=== PATIENT | male | born 1995 | race Caucasian/White ===

== ENCOUNTER 2022-02-18 16:02 | Emergency (ER) | payer SELFPAY ==
--- NOTE | ~2022-02-18 | XR_ITS ---
EXAMINATION: XR ankle LT min 3V DATE: 02/18/2022 16:55 INDICATION: 3 weeks of left ankle pain and swelling TECHNIQUE: Anteroposterior, oblique, mortise, and lateral views of the left ankle were obtained. COMPARISON: None. FINDINGS: Prominent soft tissue swelling overlying the lateral malleolus. Bone alignment is normal with congrue nt ankle mortise. No fracture. Joint spaces are normal. No erosions or periosteal reaction. Increased density anterior to the tibiotalar joint line and could not exclude an ankle joint effusion. IMPRESSION: 1. Soft tissue swelling about the lateral malleolus and possible ankle joint effusion. No osseous abn ormality. Reviewed, dictated and finalized at location B. IMPRESSION: 1. Soft tissue swelling about the lateral malleolus and possible ankle joint ef fusion. No osseous abnormality.
[2022-02-18 16:04] VITALS: BP 156/87; PULSE 106; RESP 16; TEMP 36.1; O2SAT 100
--- NOTE | 2022-02-18 16:55 | ED.EXTPRO ---
HPI - Extremity Problem General Chief complaint: Extremity Problem,Nontraumatic Stated complaint: Left Ankle Pain x3 weeks Time Seen by Provider: 02/18/22 16:51 Source: patient Mode of arrival: ambulatory Limitations: no limitations History of Present Illness HPI Narrative: Patient is 26 years old white male presents with pain at the left ankle laterally started 3 weeks ago. Patient denies any trauma or any twist. Also denies any fever, chills, nausea, vomiting. Related Data Allergies Allergy/AdvReac Type Severity Reaction Status Date / Time No Known Allergies Allergy Unknown Verified 02/18/22 16:10 Review of Systems Review of Systems: All systems reviewed & are unremarkable except as noted in HPI and below PMFSH Family History Family History Grandparent Hypertension Family history of seizure disorder Family history of heart disease in male family member before age 55 Mother Hypertension Social History Social History Smoking status: Never smoker Alcohol intake: never Exam Narrative: General appearance: Well-developed, well-nourished Skin: Normal color Neck: Supple, nontender Chest and respiratory: Airway patent, no respiratory distress, no accessory muscle use Heart: Regular rate/rhythm Vascular: Normal peripheral pulses, normal capillary refill. Musculoskeletal: Left ankle examination showed slightly swollen laterally, warm to touch, slightly red at the lateral malleolus. Tender to touch. 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 Patient's father had history of gouty arthritis. Vital Signs Vital signs: Vital Signs Temperature 36.1 C L 02/18/22 16:04 Pulse Rate 106 H 02/18/22 16:04 Respiratory Rate 16 02/18/22 16:04 Blood Pressure 156/87 H 02/18/22 16:04 Pulse Oximetry 100 02/18/22 16:04 Oxygen Delivery Room Air 02/18/22 16:04 Temperature 36.1 C L 02/18/22 16:04 Pulse Rate 106 H 02/18/22 16:04 Respiratory Rate 16 02/18/22 16:04 Blood Pressure 156/87 H 02/18/22 16:04 Pulse Oximetry 100 02/18/22 16:04 Oxygen Delivery Room Air 02/18/22 16:04 MDM - Extremity (Nontraumatic) Imaging Data Radiologist's impression: Impressions Ankle X-Ray 02/18/22 16:58 IMPRESSION: 1. Soft tissue swelling about the lateral malleolus and possible ankle joint effusion. No osseous abnormality. Critical Care Time Critical Care Time Critical Care Time: No Discharge Plan Discharge Clinical Impression: Gout Patient Disposition: Home, Self-Care Condition: Stable Instructions: Antibiotic Form, Gout (ED) Additional Instructions: Return if symptoms are worsening , call your family physician for appointment, take Tylenol as as needed for aches and pain, continue home medications., Keep left foot elevated, no weightbearing until pain is gone., Crutches Prescriptions: New indomethacin 50 mg capsule 50 mg PO TID Qty: 14 0RF Rx Instructions: administer with food or milk colchicine 0.6 mg capsule 0.6 mg PO BID Qty: 6 0RF Follow-up/Referrals: PHYSICIAN,MACHINE OPERATOR FARMWORKER [Primary Care Provider] - Donato Moyer MD [Physician] - 02/21/22
[2022-02-18] MEDS: INDOMETHACIN 25 MG CAPSULE 50 MG PO (17:27)
[2022-02-18] MEDS: COLCHICINE 0.6 MG TABLET 1.2 MG PO (17:27)
== END 2022-02-18 17:52 | disposition home or self-care (01) ==
PROVIDERS: Emergency Provider Emergency Medicine
DX: M10.9 Gout, unspecified (principal)
CPT/HCPCS: 73610; 99283; A9270

== ENCOUNTER 2022-11-06 17:56 | Emergency (ER) | payer OTHER, BC, SELFPAY ==
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
[2022-11-06 17:56] VITALS: BP 153/85; PULSE 97; RESP 16; TEMP 36.3; O2SAT 98
[2022-11-06] MEDS: HYDROcodone/acetaminophen (*CRX) 5-325 MG TABLET 1 TAB PO (18:22)
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
--- NOTE | 2022-11-06 19:06 | PC.NURSE ---
Report received from GORDO Wilder. Assumed care of patient at this time.
== END 2022-11-06 19:55 | disposition home or self-care (01) ==
PROVIDERS: Emergency Provider Emergency Medicine
DX: S86.011A Strain of right Achilles tendon, initial encounter (principal); V40.9XXA Unspecified car occupant injured in collision with pedestrian or animal in traffic accident, initial encounter
CPT/HCPCS: 73650; 99283; A9270

== ENCOUNTER 2022-12-21 08:27 | Emergency (ER) | payer BC, SELFPAY ==
[2022-12-21 08:37] VITALS: BP 136/82; PULSE 99; RESP 16; TEMP 37.6; O2SAT 99
--- NOTE | 2022-12-21 08:56 | ED.GENADULT ---
HPI - General Adult General Chief complaint: Extremity Problem,Nontraumatic Stated complaint: Left Hand Pain Time Seen by Provider: 12/21/22 08:56 Source: patient Mode of arrival: ambulatory Limitations: no limitations History of Present Illness HPI narrative: 27 yo M presents with c/o paint o R hand, worse to R thumb for several weeks. Getting progressively worse. Reprots pain worse with movement. Today hand feels tight and painful when gripping game controller. 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 No numbness/tingling. All systems reviewed and negative except as noted above. Related Data Home Medications Medication Instructions Recorded Confirmed escitalopram oxalate 10 mg tablet 10 mg PO DAILY 12/21/22 12/21/22 nicotine 21 mg/24 hr daily 1 patch transdermal DAILY 12/21/22 12/21/22 transdermal patch quetiapine 50 mg tablet 50 mg PO DAILY 12/21/22 12/21/22 Allergies Allergy/AdvReac Type Severity Reaction Status Date / Time No Known Allergies Allergy Unknown Verified 12/21/22 08:47 Review of Systems Review of Systems: CONSTITUTIONAL: Denies fever, chills, or sweats. EYES: Denies visual changes, redness, or discharge. ENT: Denies rhinorrhea, congestion, sore throat, or otalgia. CARDIOVASCULAR: Denies chest pain, palpitations, or edema. RESPIRATORY: Denies cough or dyspnea. GASTROINTESTINAL: Denies abdominal pain, nausea, vomiting, or diarrhea. GENITOURINARY: Denies dysuria or hematuria. SKIN: Denies rash or itching. MUSCULOSKELETAL: reports pain to R hand and R thumb NEUROLOGIC: Denies headache, numbness, or weakness. PSYCHIATRIC: Denies anxiety or depression. All other systems reviewed are negative, except as documented in HPI. [facility] Family History Family History Grandparent Hypertension Family history of seizure disorder Family history of heart disease in male family member before age 55 Mother Hypertension Social History Social History Smoking status: Never smoker Alcohol intake: never Comments At time of signature, agree with nursing past medical, surgical, social and family history. There is no relevant family history pertinent to the presenting complaint. Exam Narrative: GENERAL: This is a well-nourished, well-developed patient, in no apparent distress. HEAD: normocephalic, atraumatic. EYES: PERRL. Sclera clear/white. Vision is grossly intact. EARS: External ears normal NOSE: External nose normal NECK: Neck supple, non-tender without lymphadenopathy, masses or thyromegaly. CARDIOVASCULAR: Regular rate and rhythm without murmurs, gallops, or rubs. RESPIRATORY: Clear to auscultation. Breath sounds equal bilaterally. No wheezes, rales, or rhonchi. SKIN: warm, Dry, intact with no suspicious lesions or rash, good texture and turgor. NEURO: awake, alert, and oriented to person, place and time. There were no obvious focal neurologic abnormalities. EXTREMITIES: tenderness to R thumb and thenar eminence. mild swelling. ROM intact to R hand and R wrist. Course Course Level of Care: Express Care Visit Vital Signs Vital signs: Vital Signs Temperature 37.6 C 12/21/22 08:37 Pulse Rate 99 12/21/22 08:37 Respiratory Rate 16 12/21/22 08:37 Blood Pressure 136/82 12/21/22 08:37 Pulse Oximetry 99 12/21/22 08:37 Oxygen Delivery Room Air 12/21/22 08:37 Temperature 37.6 C 12/21/22 08:37 Pulse Rate 99 12/21/22 08:37 Respiratory Rate 16 12/21/22 08:37 Blood Pressure 136/82 12/21/22 08:37 Pulse Oximetry 99 12/21/22 08:37 Oxygen Delivery Room Air 12/21/22 08:37 Reviewed Medical Decision Making MDM Narrative Medical decision making narrative: Patient is aware of diagnosis, understands and agrees to treatment plan. Anticipatory guidance given. Patient agrees to follow-up as directed and is aware of reasons to seek care at the
== END 2022-12-21 09:09 | disposition home or self-care (01) ==
PROVIDERS: Emergency Provider Nurse Practitioner Family
DX: M77.8 Other enthesopathies, not elsewhere classified (principal); F41.9 Anxiety disorder, unspecified; F32.A Depression, unspecified
CPT/HCPCS: 99213; G0463

== ENCOUNTER 2023-05-22 13:19 | Emergency (ER) | payer BC, SELFPAY ==
[2023-05-22 13:28] VITALS: BP 144/80; PULSE 114; RESP 16; TEMP 35.9; O2SAT 99
--- NOTE | 2023-05-22 13:32 | ED.EXTPRO ---
HPI - Extremity Problem General Chief complaint: Extremity Injury, Upper Stated complaint: Left Foot Pain Time Seen by Provider: 05/22/23 13:30 Source: patient Mode of arrival: ambulatory Limitations: no limitations History of Present Illness HPI Narrative: Mikel is a 27-year-old male patient presenting to the clinic today with complaints of left ankle pain times 2-3 days. He reports no known injury. Does have a history of gout. Has pain to the lateral ankle. Has been wearing a compression bandage Related Data Allergies Allergy/AdvReac Type Severity Reaction Status Date / Time No Known Allergies Allergy Unknown Verified 05/22/23 13:30 Review of Systems Review of Systems: Pertinent positives per HPI. Patient denies any fever, chills, rash, headache, visual changes, dizziness, cough, runny nose, sore throat, shortness of breath, chest pain, palpitations, nausea, vomiting, diarrhea, constipation, abdominal pain, or any urinary issues. PMFSH Family History Family History Grandparent Hypertension Family history of seizure disorder Family history of heart disease in male family member before age 55 Mother Hypertension Social History Social History Smoking status: Never smoker Alcohol intake: never Comments At the time of my signature, I reviewed and agree with the nursing past medical, surgical, social, and family history. There is no relevant family history pertinent to the patient complaint. Exam Narrative: General: Well-developed, well nourished, in no apparent distress Head: Normocephalic, atraumatic. Cardio: Regular rate and rhythm, s1 and s2 normal, no murmur appreciated. Resp: Clear to auscultation bilaterally, no rhonchi, rales, wheezing or rubs. Musculoskeletal: No deformity, tender to palpation over the lateral ankle with mild swelling and redness, grossly normal range of motion, muscle strength strong and equal, peripheral pulse strong, no edema, no cyanosis, normal gait and station Course Course Emergency Course: Portions of this record may have been created with voice recognition software. Level of Care: Express Care Visit Vital Signs Vital signs: Vital Signs Temperature 35.9 C L 05/22/23 13:28 Pulse Rate 114 H 05/22/23 13:28 Respiratory Rate 16 05/22/23 13:28 Blood Pressure 144/80 H 05/22/23 13:28 Pulse Oximetry 99 05/22/23 13:28 Oxygen Delivery Room Air 05/22/23 13:28 Temperature 35.9 C L 05/22/23 13:28 Pulse Rate 114 H 05/22/23 13:28 Respiratory Rate 16 05/22/23 13:28 Blood Pressure 144/80 H 05/22/23 13:28 Pulse Oximetry 99 05/22/23 13:28 Oxygen Delivery Room Air 05/22/23 13:28 Vital signs reviewed MDM - Extremity (Nontraumatic) MDM Narrative Medical decision making narrative: At the time of visit patient is resting comfortably on the exam table. He denies any known injury to the left ankle I will go and place him on colchicine and prednisone to cover gout. Supportive measures were discussed with the patient he voiced understanding discharge instructions agrees to treatment plan. Differential Diagnosis Differential diagnosis: Likely gout, cellulitis and lower extremity edema Discharge Plan Discharge Clinical Impression: Acute gout of ankle Patient Disposition: Home, Self-Care Condition: Stable Instructions: Antibiotic Form, Gout (ED) Additional Instructions: Rest, ice, and elevate Take Tylenol as needed for pain Start prednisone 40 mg p.o. daily x 5 days Take colchicine as prescribed Follow-up with your PCP in 5 days if symptoms persist or sooner if they worsen Prescriptions: New prednisone 20 mg tablet 40 mg PO DAILY 5 Days Qty: 10 0RF colchicine (gout) 0.6 mg tablet See Rx Instructions .ROUTE .COMPLEX Qty: 3 0RF Rx Instructions: Take 2 tabs (1.2mg) po x1 dose
== END 2023-05-22 13:45 | disposition home or self-care (01) ==
PROVIDERS: Emergency Provider Nurse Practitioner Family
DX: M10.9 Gout, unspecified (principal)
CPT/HCPCS: 99213; G0463